=== PATIENT | male | born 1950 | race Caucasian/White ===

== ENCOUNTER 2017-05-06 10:17 | Emergency (ER) | payer MEDICARE, OTHER ==
[2017-05-06 10:30] VITALS: BP 117/80
--- NOTE | 2017-05-06 11:05 | EDM.PDOC ---
Scribed by Ela Gallegos 05/06/17 1105 for Lisandro Bee MD ED HPI GENERAL MEDICAL PROBLEM - General Chief Complaint: Genitourinary Problem Stated Complaint: STATUS POST HIP SURG. ROSIE YOUNG Time Seen by Provider: 05/06/17 10:30 Source of Information: Reports: Patient, RN, RN Notes Reviewed History Limitations: Reports: No Limitations - History of Present Illness INITIAL COMMENTS - FREE TEXT/NARRATIVE: Patient presented with complaint of unable to pass urine. He is status post total hip replacement a few days ago and was urinating fine when discharged home. The urine flow decreased. Last night he was only able to pass a little urine, and today even base. Now he feels his bladder is distended. Location: Reports: Abdomen Quality: Reports: Ache Severity: Severe Improves with: Reports: None Worsens with: Reports: None Associated Symptoms: Reports: No Other Symptoms - Related Data Allergies Allergy/AdvReac Type Severity Reaction Status Date / Time No Known Allergies Allergy Verified 10/06/14 09:55 Home Meds: Home Meds Atenolol [Tenormin] 50 mg PO DAILY 10/06/14 [History] Digoxin [Lanoxin] 125 mcg PO DAILY 10/06/14 [History] Lisinopril [Prinivil] 40 mg PO DAILY 10/06/14 [History] Warfarin [Coumadin] 5 mg PO DAILY 10/06/14 [History] Warfarin [Coumadin] 7.5 mg PO DAILY 10/06/14 [History] atorvaSTATin [Lipitor] 20 mg PO BEDTIME 10/06/14 [History] Tamsulosin [Flomax] 1 tab PO DAILY 05/06/17 [History] Past Medical History Genitourinary History: Reports: BPH - Past Surgical History Musculoskeletal Surgical History: Reports: Hip Replacement (left) Social & Family History - Tobacco Use Smoking Status *Q: Never Smoker Second Hand Smoke Exposure: No - Alcohol Use Days Per Week of Alcohol Use: 0 - Recreational Drug Use Recreational Drug Use: No - Living Situation & Occupation Living situation: Reports: Occupation: Employed ED ROS GENERAL - Review of Systems Review Of Systems: ROS reveals no pertinent complaints other than HPI. ED EXAM, RENAL/ - Physical Exam Exam: See Below Exam Limited By: No Limitations General Appearance: Alert, WD/WN, No Apparent Distress Respiratory/Chest: No Respiratory Distress, Lungs Clear, Normal Breath Sounds, No Accessory Muscle Use, Chest Non-Tender Cardiovascular: Normal Peripheral Pulses, Regular Rate, Rhythm, No Edema, No Gallop, No JVD, No Murmur, No Rub GI/Abdominal: Soft, Other (nondistended, suprapubic region with mild tenderness and palpable distention of the bladder) (Male) Exam: Deferred Back Exam: Normal Inspection, Full Range of Motion, NT Extremities: Normal Inspection, Normal Range of Motion, Non-Tender, Normal Capillary Refill, No Pedal Edema Neurological: Alert, Oriented, CN II-XII Intact, Normal Cognition, Normal Gait, Normal Reflexes, No Motor/Sensory Deficits Psychiatric: Normal Affect, Normal Mood Skin Exam: Warm, Dry, Intact, Normal Color, No Rash Lymphatic: No Adenopathy Course - Vital Signs Last Recorded V/S: Last Vital Signs Temp 36.6 C 05/06/17 10:20 Pulse 53 L 05/06/17 10:20 Resp 18 05/06/17 10:20 BP 117/80 05/06/17 10:20 Pulse Ox 95 05/06/17 10:20 - Orders/Labs/Meds Orders: Active Orders 24 hr Category Date Time Status Insert Gerardo Catheter [Insert Urinary Catheter] [OM.PC] Care 05/06/17 10:30 Ordered Q24H Urinary Catheter Assessment [RC] ASDIRECTED Care 05/06/17 10:19 Active Labs: Laboratory Tests 05/06/17 Range/Units 10:30 Urine Color Yellow (YELLOW) Urine Appearance Slightly cloudy (CLEAR) Urine pH 5.5 (5.0-9.0) Ur Specific [place] 1.020 (1.005-1.030) Urine Protein 30 H (NEGATIVE) Urine Glucose (UA) Negative (NEGATIVE) Urine Ketones Negative (NEGATIVE) Urine Occult Blood Trace-intact H (NEGATIVE) Urine Nitrite Negative (NEGATIVE) Urine Bilirubin Negative (NEGATIVE) Urine Urobilinogen 0.2 (0.2-1.0) mg/dL Ur Leukocyte Esterase Negative (NEGATIVE) Urine RBC 5-10 H /HPF Urine WBC 0-5 (0-5/HPF) /HPF Ur Epithelial Cells Rare /HPF Amorphous Sediment Rare (0/HPF) /HPF Urine Bacteria Rare (0-FEW/HPF) /HPF Urine Mucus Rare /LPF - Re-Assessments/Exams Free Text/Narrative Re-Assessment/Exam: 05/06/17 11:01 Gerardo catheter by RN and discharged home care instructions. Departure - Departure Time of Disposition: 10:54 Disposition: Home, Self-Care 01 Condition: Good Clinical Impression: Postoperative urinary retention - Discharge Information Instructions: Acute Urinary Retention, Male, [id number] Forms: ED Department Discharge Additional Instructions: Follow up in the clinic in 2 days (Monday, May 08) with your doctor. - My Orders Last 24 Hours: My Active Orders 05/06/17 10:19 Urinary Catheter Assessment [RC] ASDIRECTED 05/06/17 10:30 Insert Gerardo Catheter [Insert Urinary Catheter] [OM.PC] Q24H - Assessment/Plan Last 24 Hours: My Active Orders 05/06/17 10:19 Urinary Catheter Assessment [RC] ASDIRECTED 05/06/17 10:30 Insert Gerardo Catheter [Insert Urinary Catheter] [OM.PC] Q24H I have read and agree with the documentation that has been completed regarding this visit. By signing this record, I attest that the documentation was completed in my physical presence and is an accurate record of the encounter.
== END 2017-05-06 11:16 | disposition home or self-care (01) ==
LOC: DL.ED 10:17
DX: N99.89 Other postprocedural complications and disorders of genitourinary system (principal); R33.9 Retention of urine, unspecified; Z98.890 Other specified postprocedural states; Z79.899 Other long term (current) drug therapy; Z79.01 Long term (current) use of anticoagulants; Z96.642 Presence of left artificial hip joint
CPT/HCPCS: 51702; 81001; 99283

== ENCOUNTER 2017-05-18 11:33 | Emergency (ER) | payer MEDICARE, OTHER ==
--- NOTE | 2017-05-18 11:57 | EDM.PDOC ---
ED HPI GENERAL MEDICAL PROBLEM - General Chief Complaint: Genitourinary Problem Stated Complaint: CATHETER INSERTED, [id number] Time Seen by Provider: 05/18/17 11:50 Source of Information: Reports: Patient History Limitations: Reports: No Limitations - History of Present Illness INITIAL COMMENTS - FREE TEXT/NARRATIVE: This patient reports to the ED due to not being able to urinate over the past 24 hours. The patient reports that he has had several catheters placed since 05/08/17. The patient had a catheter removed yesterday, but has not been able to void since that time. Onset: Today Duration: Constant Location: Reports: Abdomen Quality: Reports: Ache, Dull Severity: Mild Improves with: Reports: None Worsens with: Reports: None Associated Symptoms: Reports: No Other Symptoms - Related Data Allergies Allergy/AdvReac Type Severity Reaction Status Date / Time No Known Allergies Allergy Verified 05/18/17 11:37 Home Meds: Home Meds Atenolol [Tenormin] 50 mg PO DAILY 10/06/14 [History] Digoxin [Lanoxin] 125 mcg PO DAILY 10/06/14 [History] Lisinopril [Prinivil] 40 mg PO DAILY 10/06/14 [History] Warfarin [Coumadin] 5 mg PO DAILY 10/06/14 [History] Warfarin [Coumadin] 7.5 mg PO DAILY 10/06/14 [History] atorvaSTATin [Lipitor] 20 mg PO BEDTIME 10/06/14 [History] Tamsulosin [Flomax] 1 tab PO DAILY 05/06/17 [History] Past Medical History Cardiovascular History: Reports: Afib, High Cholesterol, Hypertension Genitourinary History: Reports: BPH - Past Surgical History Musculoskeletal Surgical History: Reports: Hip Replacement Social & Family History - Tobacco Use Smoking Status *Q: Never Smoker Second Hand Smoke Exposure: No - Caffeine Use Caffeine Use: Reports: None - Alcohol Use Days Per Week of Alcohol Use: 0 - Recreational Drug Use Recreational Drug Use: No - Living Situation & Occupation Living situation: Reports: Occupation: Employed ED ROS GENERAL - Review of Systems Review Of Systems: ROS reveals no pertinent complaints other than HPI. ED EXAM, GI/ABD - Physical Exam Exam: See Below Exam Limited By: No Limitations General Appearance: Alert, WD/WN, Moderate Distress Eyes: Bilateral: Normal Appearance, EOMI Ears: Normal External Exam, Normal Canal, Hearing Grossly Normal, Normal TMs Nose: Normal Inspection, Normal Mucosa, No Blood Throat/Mouth: Normal Inspection, Normal Lips, Normal Teeth, Normal Gums, Normal Oropharynx, Normal Voice, No Airway Compromise Head: Atraumatic, Normocephalic Neck: Normal Inspection, Supple, Non-Tender, Full Range of Motion Respiratory/Chest: No Respiratory Distress, Lungs Clear, Normal Breath Sounds, No Accessory Muscle Use, Chest Non-Tender Cardiovascular: Normal Peripheral Pulses, Regular Rate, Rhythm, No Edema, No Gallop, No JVD, No Murmur, No Rub GI/Abdominal Exam: Normal Bowel Sounds, Soft, Non-Tender, No Organomegaly, No Abnormal Bruit, No Mass, Pelvis Stable, Distended (Male) Exam: Deferred Rectal (Males) Exam: Deferred Back Exam: Normal Inspection, Full Range of Motion, NT Extremities: Limited Range of Motion (left hip pain) Neurological: Alert, Oriented, CN II-XII Intact, Normal Cognition, Normal Gait, Normal Reflexes, No Motor/Sensory Deficits Psychiatric: Normal Affect, Normal Mood Skin Exam: Warm, Dry, Intact, Normal Color, No Rash Lymphatic: No Adenopathy Course - Vital Signs Last Recorded V/S: Last Vital Signs Temp 35.7 C 05/18/17 11:42 Pulse 97 05/18/17 11:42 Resp 16 05/18/17 11:42 BP 130/87 05/18/17 11:42 Pulse Ox 97 05/18/17 11:42 - Orders/Labs/Meds Orders: Active Orders 24 hr Category Date Time Status UA W/MICROSCOPIC [URIN] Stat Lab 05/18/17 12:05 Results Labs: Laboratory Tests 05/18/17 Range/Units 12:05 Urine Color Yellow (YELLOW) Urine Appearance Slightly cloudy (CLEAR) Urine pH 5.5 (5.0-9.0) Ur Specific [place] 1.025 (1.005-1.030) Urine Protein 30 H (NEGATIVE) Urine Glucose (UA) Negative (NEGATIVE) Urine Ketones Negative (NEGATIVE) Urine Occult Blood Trace-intact H (NEGATIVE) Urine Nitrite Negative (NEGATIVE) Urine Bilirubin Negative (NEGATIVE) Urine Urobilinogen 0.2 (0.2-1.0) mg/dL Ur Leukocyte Esterase Negative (NEGATIVE) Departure - Departure Time of Disposition: 12:34 Disposition: Home, Self-Care 01 Condition: Fair Clinical Impression: Postoperative urinary retention - Discharge Information Instructions: Acute Urinary Retention, Male, [id number] Forms: ED Department Discharge Care Plan Goals: The patient was advised of the examination results during the visit. The patient was encouraged to follow-up with urology for continued evaluation and treatment. If the patient has any additional symptoms or concerns, the patient should follow-up with his primary care facility or return to the ED. - My Orders Last 24 Hours: My Active Orders 05/18/17 12:05 UA W/MICROSCOPIC [URIN] Stat - Assessment/Plan Last 24 Hours: My Active Orders 05/18/17 12:05 UA W/MICROSCOPIC [URIN] Stat
[2017-05-18 12:38] VITALS: BP 128/77
== END 2017-05-18 12:48 | disposition home or self-care (01) ==
LOC: DL.ED 11:33
DX: N99.89 Other postprocedural complications and disorders of genitourinary system (principal); R33.9 Retention of urine, unspecified; I10 Essential (primary) hypertension; E78.00 Pure hypercholesterolemia, unspecified; Z79.01 Long term (current) use of anticoagulants; Z79.899 Other long term (current) drug therapy
CPT/HCPCS: 51702; 81001; 99283

== ENCOUNTER 2019-05-03 12:05 | Emergency (ER) | payer MEDICARE, OTHER ==
[2019-05-03 12:15] VITALS: BP 112/90; PULSE 138
--- NOTE | 2019-05-03 12:28 | EDM.PDOC ---
ED HPI GENERAL MEDICAL PROBLEM - General Stated Complaint: DONT FEEL GOOD Time Seen by Provider: 05/03/19 12:25 Source of Information: Reports: Patient, Provider History Limitations: Reports: No Limitations - History of Present Illness INITIAL COMMENTS - FREE TEXT/NARRATIVE: This 69 yo male patient was sent to the ED from the [facility] due to a 1 week history of increased shortness of breath. The patient also reported to the clinic that he had chest pain yesterday while at home. The patient reported that his chest pain was mostly in the left shoulder but did go up into he left jaw. The patient states that he has had night sweats over the past week as well as the shortness of breath. The patient has a history of a stent (placed in 2013 ), coronary artery disease and atrial fibrillation. No further evaluation or management was done through the clinic prior to sending the patient to the ED. Duration: Week(s):, Constant Location: Reports: Abdomen, Generalized Quality: Reports: Other Severity: Moderate Improves with: Reports: None Worsens with: Reports: None Context: Reports: Other Associated Symptoms: Reports: Fever/Chills, Weakness Bilateral Feet Pain Score (Numeric/FACES): 1 - Related Data Allergies Allergy/AdvReac Type Severity Reaction Status Date / Time No Known Allergies Allergy Verified 05/03/19 12:39 Home Meds: Home Meds Atenolol [Tenormin] 100 mg PO DAILY 10/06/14 [History] Lisinopril [Prinivil] 5 mg PO BID 10/06/14 [History] Warfarin [Coumadin] 5 mg PO DAILY 10/06/14 [History] Warfarin [Coumadin] 7.5 mg PO DAILY 10/06/14 [History] atorvaSTATin [Lipitor] 40 mg PO BEDTIME 10/06/14 [History] Tamsulosin [Flomax] 1 tab PO DAILY 05/06/17 [History] Calcitriol 0.25 mcg PO ASDIRECTED 05/03/19 [History] NIFEdipine [Procardia Xl] 60 mg PO DAILY 05/03/19 [History] Past Medical History Cardiovascular History: Reports: Afib, High Cholesterol, Hypertension Genitourinary History: Reports: BPH - Past Surgical History Musculoskeletal Surgical History: Reports: Hip Replacement Social & Family History - Caffeine Use Caffeine Use: Reports: None - Living Situation & Occupation Living situation: Reports: Occupation: Employed ED ROS GENERAL - Review of Systems Review Of Systems: Comprehensive ROS is negative, except as noted in HPI. ED EXAM, GENERAL - Physical Exam Exam: See Below Exam Limited By: No Limitations General Appearance: Alert, WD/WN, Moderate Distress Eye Exam: Bilateral Eye: EOMI, Normal Inspection, PERRL Ears: Normal External Exam, Normal Canal, Hearing Grossly Normal, Normal TMs Nose: Normal Inspection, Normal Mucosa, No Blood Throat/Mouth: Normal Inspection, Normal Lips, Normal Teeth, Normal Gums, Normal Oropharynx, Normal Voice, No Airway Compromise Head: Atraumatic, Normocephalic Neck: Normal Inspection, Supple, Non-Tender, Full Range of Motion Respiratory/Chest: No Respiratory Distress, Lungs Clear, Normal Breath Sounds, No Accessory Muscle Use, Chest Non-Tender Cardiovascular: Tachycardia, Irregularly Irregular GI/Abdominal: Normal Bowel Sounds, Soft, Non-Tender, No Abnormal Bruit, No Mass , Pelvis Stable, Distended (mild) (Male) Exam: Deferred Rectal (Males) Exam: Deferred Back Exam: Normal Inspection, Full Range of Motion, NT Extremities: Normal Inspection, Normal Range of Motion, Non-Tender, Normal Capillary Refill, No Pedal Edema Neurological: Alert, Oriented, CN II-XII Intact, Normal Cognition, Normal Gait, Normal Reflexes, No Motor/Sensory Deficits Psychiatric: Normal Affect, Normal Mood Skin Exam: Warm, Dry, Intact, Normal Color, No Rash Lymphatic: No Adenopathy Course - Vital Signs Last Recorded V/S: Last Vital Signs Temp 35.8 C 05/03/19 12:08 Pulse 138 H 05/03/19 12:08 Resp 20 05/03/19 12:08 BP 112/90 05/03/19 12:08 Pulse Ox 93 L 05/03/19 12:08 - Orders/Labs/Meds Orders: Active Orders 24 hr Category Date Time Status EKG Documentation Completion [RC] URGENT Care 05/03/19 12:11 Active CULTURE BLOOD [BC] Stat Lab 05/03/19 12:19 Received CULTURE BLOOD [BC] Stat Lab 05/03/19 13:07 Received Labs: Laboratory Tests 05/03/19 05/03/19 05/03/19 Range/Units 12:19 12:19 12:19 WBC 106.9 H* (5.0-10.0) 10^3/uL RBC 4.33 L (4.6-6.2) 10^6/uL Hgb 12.7 L (14.0-18.0) g/dL Hct 38.5 L (40.0-54.0) % MCV 88.9 D (80-100) fL MCH 29.3 (27.0-34.0) pg MCHC 33.0 (33.0-35.0) g/dL Plt Count 35 L* D (150-450) 10^3/uL Neut % (Auto) (42.2-75.2) % Add Manual Diff Yes Neutrophils % (Manual) 13 L (42-75) % Band Neutrophils % 3 % Lymphocytes % (Manual) 8 L (20-50) % Monocytes % (Manual) 73 H (2-8) % Metamyelocytes % 1 Blast Cells % 2 Nucleated RBCs 2 /100WBC Platelet Estimate Marked dec PT 38.3 H D (9.0-12.0) SEC INR 4.0 H (0.9-1.2) Sodium (135-145) mmol/L Potassium (3.6-5.0) mmol/L Chloride (101-111) mmol/L Carbon Dioxide (21.0-31.0) mmol/L Anion Gap BUN (7-18) mg/dL Creatinine (0.6-1.3) mg/dL Est Cr Clr Drug Dosing mL/min Estimated GFR (MDRD) BUN/Creatinine Ratio Glucose (74-105) mg/dL Lactic Acid 1.9 (0.5-2.2) mmol/L Calcium (8.4-10.2) mg/dl Total Bilirubin (0.2-1.0) mg/dL AST (10-42) IU/L ALT (10-60) IU/L Alkaline Phosphatase (42-121) IU/L Troponin I (0.00-0.02) ng/ml Total Protein (6.7-8.2) g/dl Albumin (3.2-5.5) g/dl Globulin Albumin/Globulin Ratio 05/03/ Range/Units 12:19 WBC (5.0-10.0) 10^3/uL RBC (4.6-6.2) 10^6/uL Hgb (14.0-18.0) g/dL Hct (40.0-54.0) % MCV (80-100) fL MCH (27.0-34.0) pg MCHC (33.0-35.0) g/dL Plt Count (150-450) 10^3/uL Neut % (Auto) (42.2-75.2) % Add Manual Diff Neutrophils % (Manual) (42-75) % Band Neutrophils % % Lymphocytes % (Manual) (20-50) % Monocytes % (Manual) (2-8) % Metamyelocytes % Blast Cells % Nucleated RBCs /100WBC Platelet Estimate PT (9.0-12.0) SEC INR (0.9-1.2) Sodium 137 (135-145) mmol/L Potassium 3.3 L (3.6-5.0) mmol/L Chloride 103 (101-111) mmol/L Carbon Dioxide 22.0 (21.0-31.0) mmol/L Anion Gap 15.3 BUN 38 H (7-18) mg/dL Creatinine 2.1 H (0.6-1.3) mg/dL Est Cr Clr Drug Dosing 35.24 mL/min Estimated GFR (MDRD) 32 BUN/Creatinine Ratio 18.09 Glucose 125 H (74-105) mg/dL Lactic Acid (0.5-2.2) mmol/L Calcium 10.1 (8.4-10.2) mg/dl Total Bilirubin 1.2 H (0.2-1.0) mg/dL AST 30 (10-42) IU/L ALT 23 (10-60) IU/L Alkaline Phosphatase 67 (42-121) IU/L Troponin I < 0.02 (0.00-0.02) ng/ml Total Protein 7.7 (6.7-8.2) g/dl Albumin 3.7 (3.2-5.5) g/dl Globulin 4.0 Albumin/Globulin Ratio 0.93 Meds: Medications Discontinued Medications Generic Name Dose Route Start Last Admin Trade Name Freq PRN Reason Stop Dose Admin Aspirin 324 mg 05/03/19 12:32 05/03/19 12:39 Aspirin PO 05/03/19 12:33 324 mg ONETIME ONE Administration Departure - Departure Time of Disposition: 14:27 Disposition: DC/Tfer to Acute Hospital 02 Reason for Transfer *Q: Other Condition: Fair Clinical Impression: Right lower lobe pulmonary nodule Leukocytosis Qualifiers: Leukocytosis type: other Qualified Code(s): D72.828 - Other elevated white blood cell count Forms: Interfacility Transfer EMTALA Care Plan Goals: Discussed the patient's history, examination, lab, x-ray, EKG and CT results with Dr. Gibson (Hospitalist) and Dr. Hillman (Oncologist) at [facility] in [place]. Dr. Gibson accepted the patient for continued evaluation and further management. The patient will be transported by his family. - My Orders Last 24 Hours: My Active Orders 05/03/19 12:11 EKG Documentation Completion [RC] URGENT 05/03/19 12:19 CULTURE BLOOD [BC] Stat 05/03/19 13:07 CULTURE BLOOD [BC] Stat - Assessment/Plan Last 24 Hours: My Active Orders 05/03/19 12:11 EKG Documentation Completion [RC] URGENT 05/03/19 12:19 CULTURE BLOOD [BC] Stat 05/03/19 13:07 CULTURE BLOOD [BC] Stat
[2019-05-03] MEDS ORDERED: Aspirin 81 MG Tab.Chew PO ONE (12:32)
[2019-05-03 12:48] LABS: ANION GAP 15.3; CHLORIDE,CL 103 mmol/L (101-111); SODIUM,NA 137 mmol/L (135-145)
--- NOTE | 2019-05-03 13:23 | CR ---
EXAMINATION: Chest 1V Frontal SEX: Male AGE: 69 years CLINICAL HISTORY: 69-year-old male with past history of nephrectomy (kidney cancer), SHORTNESS OF BREATH, CHEST PAIN and abnormally elevated WBC (106,900 without shift). INTERPRETATION: 1. *Asymmetric dense new consolidation left lung base silhouetting the ipsilateral hemidiaphragm since 06 Oct 2014 comparison film. Underlying dependent pleural effusion and/or lobar pneumonia suggested. 2. Cardiac silhouette unchanged. No new cephalization of vascular flow, alveolar edema or dependent right pleural effusion. 3. Bony thorax unremarkable. CONCLUSION: Abnormal.
--- NOTE | 2019-05-03 13:59 | CT ---
EXAMINATION: Abdomen Pelvis wo Cont SEX: Male AGE: 69 years CLINICAL HISTORY: 69-year-old 206 pound male with history of renal cancer, shortness of breath, chest pain, and ABDOMINAL BLOATING (WBC 106,900). Abnormal appearance left lung base on recent CXR. Scan technique: Volume acquisition of data from the abdomen and pelvis obtained without oral or IV contrast while lying supine on the Siemens multislice scanner [place], [place]. All data archived in the PACS system for storage, reformatting axial/sagittal/coronal planes and study. Interpretation: 1. Several suspicious parenchymal LUNG NODULES (at least 4 with the largest measuring 13 mm diameter) RLL. 2. Asymmetric dependent subpulmonic pleural effusion left lung base with underlying atelectasis. 3. Large cardiac silhouette. No pericardial effusion. 4. Densely calcified "cast" normal caliber aortoiliac vessels. No aneurysm or dissection. 5. Cholecystectomy. Right nephrectomy. Unenhanced liver stomach adrenal glands and contralateral left kidney unremarkable. 6. Splenomegaly (2 low-attenuation splenic lesions or infarcts). 7. No abdominal or pelvic mass lesion, mesenteric or retroperitoneal lymphadenopathy, signs of mechanical bowel obstruction, ascites or free intraperitoneal air. Unenhanced urinary bladder unremarkable. 8. Multilevel lower thoracic and lumbar disc disease. Probable hemangioma L2 vertebral body. No fracture or dislocation. Orthopedic prosthesis replacing left hip. CONCLUSION: Probable metastatic lesions right lower lobe lung. Dependent pleural effusion on the left. Cardiomegaly. Right nephrectomy. Cholecystectomy. Splenomegaly with parenchymal lesions. No sign of mechanical bowel obstruction or ascites.
== END 2019-05-03 14:37 ==
LOC: DL.ED 12:05
DX: R91.1 Solitary pulmonary nodule (principal); D72.828 Other elevated white blood cell count; I10 Essential (primary) hypertension; I48.91 Unspecified atrial fibrillation; E78.00 Pure hypercholesterolemia, unspecified; Z79.01 Long term (current) use of anticoagulants; Z79.899 Other long term (current) drug therapy
CPT/HCPCS: 36415; 71045; 74176; 80053; 83605; 84484; 85025; 85610; 87040; 87077; 87186; 87804; 93005; 99285; A9270; 99284

== ENCOUNTER 2020-02-25 18:39 | Emergency (ER) | payer MEDICARE, BC ==
[2020-02-25 19:28] VITALS: BP 128/96; PULSE 130
--- NOTE | 2020-02-25 19:29 | CR ---
PROCEDURE INFORMATION: Exam: XR Chest, 1 View Exam date and time: 02/25/2020 7:11 PM Age: 69 years old Clinical indication: Shortness of breath; Additional info: SOB TECHNIQUE: Imaging protocol: XR of the chest Views: 1 view. COMPARISON: CT Chest Abdomen Pelvis w Cont 09/02/2019 10:15 AM FINDINGS: Tubes, catheters and devices: A central line is been placed by the right jugular approach. The catheter tip projects over the expected location of the superior vena cava. Lungs: There is mild nonspecific prominence of the pulmonary vasculature. 15 mm perihilar nodule left lung . Probable 28 mm right midlung nodule, extra anatomic devices project over this area and this density may be artifactual. Additional nodules noted on a prior CT study are plain film occult.There is mild nonspecific prominence of the pulmonary vasculature. There is diffuse mild nonspecific interstitial disease. Pleural space: No pleural effusion. No pneumothorax. Heart/Mediastinum: There is moderate cardiomegaly. Bones/joints: No acute bony findings are identified. Other findings: There is mild nonspecific patchy linear density at right base which could be atelectatic, or inflammatory. IMPRESSION: 1. Suspect changes of pulmonary venous hypertension with mild/early interstitial pulmonary edema. Superimposed interstitial inflammatory change cannot be entirely excluded. 2. There is mild nonspecific patchy linear density at right base which could be atelectatic, or inflammatory or potentially could reflect more focal edema. . 3. Multiple pulmonary nodules suspect. Please refer to CT report
[2020-02-25 19:47] LABS: ANION GAP 15.6 mEq/L (7-13); CHLORIDE,CL 104 mmol/L (98-107); SODIUM,NA 137 mmol/L (136-145)
[2020-02-25] MEDS ORDERED: Furosemide 40 MG/4 ML VIAL IVPUSH ONE (20:13)
[2020-02-25] MEDS ORDERED: Diltiazem 25 MG/5 ML SDV IVPUSH ONE (20:32)
--- NOTE | 2020-02-26 20:00 | EDM.PDOC ---
ED HPI GENERAL MEDICAL PROBLEM - General Chief Complaint: Respiratory Problem Stated Complaint: WEAK, CANT CATCH BREATH Time Seen by Provider: 02/25/20 19:25 Source of Information: Reports: Patient History Limitations: Reports: No Limitations - History of Present Illness INITIAL COMMENTS - FREE TEXT/NARRATIVE: ED with c/o feeling weak past 3-4 days with SOB and unable to sleep. notes feels like this usually if blood counts are low Hx leukemia and chemo one week ago and transfusion x 2 last week Monday and Monday. Denies fevers or chills. No cough, no covid exposure. No chest pain. Has not tried anything for sleep. No bleeding. no GI upset. Lower Back Pain Score (Numeric/FACES): 10 - Related Data Allergies Allergy/AdvReac Type Severity Reaction Status Date / Time chlorhexidine Allergy Other Verified 02/22/20 17:32 Home Meds: Home Meds Atenolol [Tenormin] 50 mg PO DAILY 10/06/14 [History] Warfarin [Coumadin] 2.5 mg PO DAILY 10/06/14 [History] Tamsulosin [Flomax] 0.4 mg PO DAILY 05/06/17 [History] calcitrioL [Calcitriol] 0.25 mcg PO ASDIRECTED 05/03/19 [History] Acyclovir [Zovirax] 400 mg PO BID 09/04/19 [History] Levofloxacin 500 mg PO DAILY 09/04/19 [History] Magnesium Sulfate 100 mg PO BID 09/04/19 [History] Fluconazole [Diflucan] 200 mg PO DAILY 11/13/19 [History] allopurinoL [Zyloprim] 100 mg PO DAILY 11/13/19 [History] Past Medical History HEENT History: Reports: None Cardiovascular History: Reports: Afib, High Cholesterol, Hypertension, Stents Respiratory History: Reports: None Gastrointestinal History: Reports: None Genitourinary History: Reports: BPH, Other (See Below) Other Genitourinary History: renal cancer Musculoskeletal History: Reports: None Neurological History: Reports: None Psychiatric History: Reports: None Endocrine/Metabolic History: Reports: None Hematologic History: Reports: Blood Transfusion(s) Immunologic History: Reports: Immunosuppression Oncologic (Cancer) History: Reports: Leukemia Dermatologic History: Reports: None - Infectious Disease History Infectious Disease History: Reports: Chicken Pox - Past Surgical History HEENT Surgical History: Reports: None Cardiovascular Surgical History: Reports: Carotid Stents Respiratory Surgical History: Reports: None GI Surgical History: Reports: Cholecystectomy Male Surgical History: Reports: Nephrectomy Neurological Surgical History: Reports: None Musculoskeletal Surgical History: Reports: Hip Replacement Social & Family History - Family History Family Medical History: Noncontributory - Tobacco Use Smoking Status *Q: Never Smoker - Caffeine Use Caffeine Use: Reports: None - Recreational Drug Use Recreational Drug Use: No - Living Situation & Occupation Living situation: Reports: Occupation: Employed ED ROS GENERAL - Review of Systems Review Of Systems: Comprehensive ROS is negative, except as noted in HPI. ED EXAM, GENERAL - Physical Exam Exam: See Below Exam Limited By: No Limitations General Appearance: Alert, Mild Distress, Other (pale) Eye Exam: Bilateral Eye: EOMI Ears: Normal External Exam, Hearing Grossly Normal Nose: Normal Inspection Throat/Mouth: Normal Inspection, Normal Lips, Normal Voice Head: Atraumatic, Normocephalic Neck: Normal Inspection Respiratory/Chest: Other (shallow respiration, mild tachypnea ). No: Rales, Rh onchi, Wheezing Cardiovascular: Normal Peripheral Pulses, Regular Rate, Rhythm, Tachycardia GI/Abdominal: Normal Bowel Sounds, Soft, Non-Tender Extremities: Pedal Edema (trace) Neurological: Alert, Oriented, Normal Cognition, No Motor/Sensory Deficits Skin Exam: Warm, Dry, Intact, Pallor Course - Vital Signs Last Recorded V/S: Last Vital Signs Temp 97.8 F 02/25/20 19:24 Pulse 130 H 02/25/20 19:24 Resp 20 02/25/20 19:24 BP 128/96 H 02/25/20 19:24 Pulse Ox 95 02/25/20 19:24 - Orders/Labs/Meds Orders: Active Orders 24 hr Category Date Time Status CULTURE BLOOD [BC] Stat Lab 02/25/20 19:04 Results Blood Culture x2 Reflex Set [OM.PC] Stat Oth 02/25/20 18:59 Ordered Labs: Laboratory Tests 02/25/20 02/25/20 02/25/20 Range/Units 19:04 19:04 19:04 WBC 0.3 L* (5.0-10.0) 10^3/uL RBC 2.85 L (4.6-6.2) 10^6/uL Hgb 9.0 L (14.0-18.0) g/dL Hct 26.7 L (40.0-54.0) % MCV 93.7 D (80-100) fL MCH 31.6 (27.0-34.0) pg MCHC 33.7 (33.0-35.0) g/dL Plt Count 12 L* D (150-450) 10^3/uL Neut % (Auto) 22.2 L (42.2-75.2) % Lymph % (Auto) 70.4 H (20.5-50.1) % Bland % (Auto) 3.7 (2-8) % Eos % (Auto) 0.0 L (1.0-3.0) % Baso % (Auto) 3.7 H (0.0-1.0) % PT 27.7 H D (9.0-12.0) SEC INR 3.0 H (0.9-1.2) Sodium 137 (136-145) mmol/L Potassium 4.6 (3.5-5.1) mmol/L Chloride 104 (98-107) mmol/L Carbon Dioxide 22 (21-32) mmol/L Anion Gap 15.6 H (7-13) mEq/L BUN 52 H (7-18) mg/dL Creatinine 2.09 H (0.70-1.30) mg/dL Est Cr Clr Drug Dosing 37.64 mL/min Estimated GFR (MDRD) 32 BUN/Creatinine Ratio 24.9 (No establ ref range) Glucose 190 H (74-99) mg/dL Lactic Acid (0.4-2.0) mmol/L Calcium 9.6 (8.5-10.1) mg/dL Magnesium 1.8 (1.8-2.4) mg/dL Total Bilirubin 1.0 (0.2-1.0) mg/dL AST 210 H (15-37) U/L ALT 186 H (16-63) U/L Alkaline Phosphatase 62 (46-116) U/L Ammonia (11-32) umol/L Troponin I < 0.017 (0.000-0.056) ng/mL B-Natriuretic Peptide 2160 H (0-100) pg/ml Total Protein 6.7 (6.4-8.2) g/dL Albumin 2.4 L (3.4-5.0) g/dL Globulin 4.3 Albumin/Globulin Ratio 0.56 Urine Color (YELLOW) Urine Appearance (CLEAR) Urine pH (5.0-9.0) Ur Specific Vista (1.005-1.030) Urine Protein (NEGATIVE) Urine Glucose (UA) (NEGATIVE) Urine Ketones (NEGATIVE) Urine Occult Blood (NEGATIVE) Urine Nitrite (NEGATIVE) Urine Bilirubin (NEGATIVE) Urine Urobilinogen (0.2-1.0) mg/dL Ur Leukocyte Esterase (NEGATIVE) Urine RBC /HPF Urine WBC (0-5/HPF) /HPF Ur Epithelial Cells (NOT SEEN) /HPF Amorphous Sediment (NOT SEEN) /HPF Urine Bacteria (0-FEW/HPF) /HPF Granular Casts (Auto) Urine Mucus (NOT SEEN) /LPF 02/25/20 02/25/20 02/25/20 Range/Units 19:04 19:04 21:54 WBC (5.0-10.0) 10^3/uL RBC (4.6-6.2) 10^6/uL Hgb (14.0-18.0) g/dL Hct (40.0-54.0) % MCV (80-100) fL MCH (27.0-34.0) pg MCHC (33.0-35.0) g/dL Plt Count (150-450) 10^3/uL Neut % (Auto) (42.2-75.2) % Lymph % (Auto) (20.5-50.1) % Bland % (Auto) (2-8) % Eos % (Auto) (1.0-3.0) % Baso % (Auto) (0.0-1.0) % PT (9.0-12.0) SEC INR (0.9-1.2) Sodium (136-145) mmol/L Potassium (3.5-5.1) mmol/L Chloride (98-107) mmol/L Carbon Dioxide (21-32) mmol/L Anion Gap (7-13) mEq/L BUN (7-18) mg/dL Creatinine (0.70-1.30) mg/dL Est Cr Clr Drug Dosing mL/min Estimated GFR (MDRD) BUN/Creatinine Ratio (No establ ref range) Glucose (74-99) mg/dL Lactic Acid 3.8 H* (0.4-2.0) mmol/L Calcium (8.5-10.1) mg/dL Magnesium (1.8-2.4) mg/dL Total Bilirubin (0.2-1.0) mg/dL AST (15-37) U/L ALT (16-63) U/L Alkaline Phosphatase (46-116) U/L Ammonia 11 (11-32) umol/L Troponin I (0.000-0.056) ng/mL B-Natriuretic Peptide (0-100) pg/ml Total Protein (6.4-8.2) g/dL Albumin (3.4-5.0) g/dL Globulin Albumin/Globulin Ratio Urine Color Dark yellow (YELLOW) Urine Appearance Slightly cloudy (CLEAR) Urine pH 5.0 (5.0-9.0) Ur Specific Vista 1.020 (1.005-1.030) Urine Protein 100 H (NEGATIVE) Urine Glucose (UA) Negative (NEGATIVE) Urine Ketones Negative (NEGATIVE) Urine Occult Blood Trace-intact H (NEGATIVE) Urine Nitrite Negative (NEGATIVE) Urine Bilirubin Negative (NEGATIVE) Urine Urobilinogen 0.2 (0.2-1.0) mg/dL Ur Leukocyte Esterase Negative (NEGATIVE) Urine RBC 0-5 /HPF Urine WBC 0-5 (0-5/HPF) /HPF Ur Epithelial Cells Rare (NOT SEEN) /HPF Amorphous Sediment Few (NOT SEEN) /HPF Urine Bacteria Few (0-FEW/HPF) /HPF Granular Casts (Auto) Few Urine Mucus Few H (NOT SEEN) /LPF Meds: Medications Discontinued Medications Generic Name Dose Route Start Last Admin Trade Name Giovaniq PRN Reason Stop Dose Admin Diltiazem HCl 10 mg 02/25/20 20:32 02/25/20 20:40 Diltiazem IVPUSH 02/25/20 20:33 10 mg ONETIME ONE Administration Furosemide 20 mg 02/25/20 20:13 02/25/20 20:19 Lasix IVPUSH 02/25/20 20:14 20 mg NOW ONE Administration - Re-Assessments/Exams Free Text/Narrative Re-Assessment/Exam: 02/26/20 20:02 Dr Chan accepting, tx via [facility]. Departure - Departure Time of Disposition: 22:25 Disposition: DC/Tfer to Acute Hospital 02 Condition: Fair Clinical Impression: Congestive heart failure Qualifiers: Heart failure type: unspecified Heart failure chronicity: acute Qualified Code(s): I50.9 - Heart failure, unspecified Leukocytosis Qualifiers: Leukocytosis type: other Qualified Code(s): D72.828 - Other elevated white blood cell count Anemia Qualifiers: Anemia type: unspecified type Qualified Code(s): D64.9 - Anemia, unspecified Leukemia Qualifiers: Myeloid leukemia type: unspecified myeloid Leukemia Active/Remission status: without remission - Discharge Information *PRESCRIPTION DRUG MONITORING PROGRAM REVIEWED*: No *COPY OF PRESCRIPTION DRUG MONITORING REPORT IN PATIENT CHRISTOPHER: No Forms: ED Department Discharge Sepsis Event Note (ED) - Evaluation Sepsis Screening Result: No Definite Risk - My Orders Last 24 Hours: My Active Orders 02/25/20 18:59 Blood Culture x2 Reflex Set [OM.PC] Stat 02/25/20 19:04 CULTURE BLOOD [BC] Stat - Assessment/Plan Last 24 Hours: My Active Orders 02/25/20 18:59 Blood Culture x2 Reflex Set [OM.PC] Stat 02/25/20 19:04 CULTURE BLOOD [BC] Stat
== END 2020-02-25 22:07 ==
LOC: DL.ED 18:39
DX: I11.0 Hypertensive heart disease with heart failure (principal); I50.9 Heart failure, unspecified; D72.829 Elevated white blood cell count, unspecified; D64.9 Anemia, unspecified; C95.90 Leukemia, unspecified not having achieved remission; I48.91 Unspecified atrial fibrillation; Z88.3 Allergy status to other anti-infective agents; Z79.02 Long term (current) use of antithrombotics/antiplatelets; Z79.899 Other long term (current) drug therapy; Z79.01 Long term (current) use of anticoagulants
CPT/HCPCS: 36415; 51798; 71045; 80053; 81001; 82140; 83605; 83735; 83880; 84484; 85025; 85610; 87040; 87077; 87186; 96374; 96375; 99284; 99285; J1940; J3490